=== PATIENT | male | born 1980 | race Caucasian/White ===

== ENCOUNTER 2016-08-12 19:58 | Emergency (ER) | payer BC ==
[~2016-08-12] VITALS: Ht 160 cm; Wt 84.0 kg
[~2016-08-12 19:58] MED LIST: FLXHP PO; OXYC7.5T65 PO
[2016-08-12 19:59] VITALS: Ht 160 cm; Wt 84.0 kg
[2016-08-12] MEDS ORDERED: PROCHLORPERAZINE 5 MG/ML 2 ML VIAL IV STA (20:34)
[2016-08-12] MEDS ORDERED: DiphenhydrAMINE HCL 50 MG/ML VIAL IV STA (20:34)
[2016-08-12] MEDS ORDERED: SODIUM CHLORIDE 0.9% 1000ML 1,000 ML IV STA (20:34)
[2016-08-12] MEDS ORDERED: KETOROLAC TROMETHAMINE 30 MG/ML VIAL IV STA (20:34)
[2016-08-12] MEDS ORDERED: ONDANSETRON INJ 2 MG/ML 2 ML VIAL IV STA (20:34)
[2016-08-12] MEDS ORDERED: RIZA1TAB11 PO (20:41)
[2016-08-12] MEDS ORDERED: DEXAMETHASONE SOD INJ 10 MG/ML VIAL IV ONE (20:45)
--- NOTE | 2016-08-12 22:31 | EMERGENCY ROOM VISIT NOTE ---
ED Visit Note First contact with patient: 20:23 CHIEF COMPLAINT: Migraine since this afternoon HISTORY OF PRESENT ILLNESS: Patient is a 35-year-old white male who presents to the emergency department for evaluation of a migraine headache that started several hours ago. He states that the headache started as muscle tension in his neck, and he thought it was a typical tension headache. He later noted some associated visual aura which progressed to photophobia. He tried taking rizatriptan 1, without relief. The headache has progressed, and now feels like someone is firing a drill through his right eye. He is nauseous but has not vomited. He did not try any additional medications due to the severe nausea and his concern that it will cause him to vomit. He has a history of migraines and states that this does feel similar, although worse than his usual migraine. He reports that he has to use his triptan roughly once a month. He has been evaluated by neurology and had imaging scans including CTs and MRIs in the past. He is generally taking care of by his PCP for his migraines. He rates his pain a 7/10. He has not been sick with any cold or upper respiratory symptoms, fever or chills recently. Denies weakness or numbness of the extremities. There is no difficulty with balance, coordination, speech or vision. No trauma to the head and no neck pain. REVIEW OF SYSTEMS: Review of systems as per HPI. All other systems reviewed were negative. 10 systems reviewed. PMH: Electronic medical records are reviewed and summarized as above/below. See Problem List. SOCIAL HISTORY: Patient lives at home with his partner. Nonsmoker. Drinks alcohol socially. PHYSICAL EXAM: Vital Signs: Reviewed Nurse's notes. General Appearance: Patient is an uncomfortable appearing 35-year-old white male who is awake and alert and holding the right side of his head, pacing in a darkened room. Eyes: Pupils equal round reactive to light extraocular muscles are intact, no proptosis, mild photophobia ENT: Oropharynx is clear, mucous membranes are moist, tympanic membranes are clear bilaterally, no sinus or dental tenderness Neck: Supple, no cervical lymphadenopathy, no meningismus Heart: Regular rate and rhythm, S1 and S2 Lungs: Clear to auscultation bilaterally, no wheezes Rales or rhonchi, no increased work of breathing Abdomen: Soft nontender nondistended. Normal active bowel sounds. No rebound. No guarding. Back: No midline tenderness to palpation. : No CVA tenderness to palpation. Skin: Warm, no diaphoresis, no rashes. Extremities: No cyanosis, clubbing, or edema Neurologic: Patient is awake alert, and oriented x 3. Cranial nerves 2-12 are grossly intact. Motor 5 out of 5 strength bilateral upper extremities and lower extremities. No gross sensory deficits. Reflexes are 2+ throughout. EMERGENCY DEPARTMENT COURSE: The patient was seen and assessed as above. His old records are reviewed. He is seen in frequently for migraines, his last visit for a severe headache was about [address] scan performed at that time was negative. Treatment plan was discussed with the patient and he was in agreement. IV lock was initiated. He was hydrated with a liter bolus of normal saline solution and medicated with Zofran 4 mg IV, Benadryl 50 mg IV, Compazine 10 mg IV, Toradol 30 mg IV and Decadron 10 mg IV. He was reassessed and reported that his headache had improved. He rated it a 4/10. He was allowed to rest until the IV fluids were completed. He was given an oxycodone home pack to use for any rebound symptoms overnight. He rated his discomfort a 3/10 at discharge. He was discharged home with his significant other driving. Differential includes: acute intracranial bleed, meningitis, encephalitis, mass or mass effect, sinusitis, infection, migraine, tumor, headache, temporal arteritis and carbon monoxide exposure. Problem List Medical Problems: (1) Asthma, Unspecified Status: Chronic (2) Back pain Status: Resolved (3) Back pain Status: Resolved (4) Depressive Disorder Nec Status: Chronic (5) Disc Displacement Nos Status: Resolved (6) Headache Status: Resolved (7) Migraine Status: Chronic (8) S/P epidural steroid injection Status: Resolved Surgical Problems: (1) S/P tonsillectomy and adenoidectomy Status: Resolved Current/Historical Medications Scheduled Rizatriptan Benzoate (Rizatriptan Benzoate), 10 MG PO DIRECTED Scheduled PRN Cyclobenzaprine HCl (Cyclobenzaprine HCl), 10 MG PO BID PRN for MUSCLE PAIN Allergies Coded Allergies: Penicillins (Verified Allergy, Unknown, 08/12/16) Sulfa Drugs (Verified Allergy, Unknown, 08/12/16) Vital Signs Date Time Temp Pulse Resp B/P Pulse Ox O2 Delivery O2 Flow Rate FiO2 08/12/16 23:01 90 18 122/72 97 Room Air 08/12/16 19:59 95 20 139/93 98 Room Air Medications Administered Medications (Trade) Dose Ordered Sig/Kelly Route Start Time Stop Time Status Last Admin Dose Admin Sodium Chloride (Nss 1000ml) 1,000 ml @ 999 mls/hr Q1H1M STAT IV 08/12/16 20:34 08/12/16 21:34 DC 08/12/16 21:13 999 MLS/HR Ketorolac Tromethamine (Toradol Inj) 30 mg NOW STAT IV 08/12/16 20:34 08/12/16 20:36 DC 08/12/16 21:13 30 MG Diphenhydramine HCl (Benadryl Inj) 50 mg NOW STAT IV 08/12/16 20:34 08/12/16 20:36 DC 08/12/16 21:29 50 MG Prochlorperazine Edisylate (Compazine Inj) 10 mg NOW STAT IV 08/12/16 20:34 08/12/16 20:36 DC 08/12/16 21:28 10 MG Dexamethasone Sodium Phosphate (Decadron Inj) 10 mg NOW ONCE IV 08/12/16 20:45 08/12/16 20:46 DC 08/12/16 21:13 10 MG Ondansetron HCl (Zofran Inj) 4 mg NOW STAT IV 08/12/16 20:34 08/12/16 20:36 DC 08/12/16 21:12 4 MG Oxycodone HCl (Roxicodone Immediate Rel 5MG Home Pack) 1 homepack UD ONCE PO 08/12/16 22:45 08/12/16 22:46 DC 08/12/16 23:05 1 HOMEPACK Departure Information Impression Primary Impression: Headache Referrals Darcy Edward M.D. (PCP) Patient Instructions My [facility] Additional Instructions DO NOT drive, drink alcohol, operate machinery, or perform dangerous activities today. You were given medications in the ER that can affect your ability to safely function or operate a vehicle. Oxycodone (OxyIR) 5mg: Take 1-2 pills every four hours for breakthrough pain. Avoid alcohol, operating machinery or dangerous equipment, working on ladders or roofs, DRIVING, or situations where being under the influence may be dangerous. It is recommended to use an [id number] stool softener such as Colace, 100mg twice daily while taking this medication to avoid constipation. Rest today in a quiet, peaceful, dark environment and get a full 8-10 hrs of sleep tonight. Avoid loud noises, smoke/smoking, alcohol, bright lights, stress, or physical exertion today to minimize the chance the headache may return. Continue current medications. Ibuprofen(Motrin, Advil) may be used for fever or pain. Use 600mg every six hours as needed. Take with food. Avoid using more than 2400mg in a 24 hour period. Do not use 2400mg per day for more than three consecutive days without physician direction. Prolonged inappropriate use can lead to stomach upset or ulcers. This is available over the counter and typically comes in 200mg tablets. (AND/OR) Acetaminophen(Tylenol) may be used for fever or pain. Use 1000mg every eight hours as needed. Avoid using more than 3000mg in a 24 hour period. This is available over the counter. Read all the package inserts or medication information paperwork provided. If you have any questions or concerns call your primary provider, pharmacist or the ER for assistance. Return to the ER for passing out, worsening headache, vision problems, neck stiffness/pain, fevers, vomiting, feeling lethargic, worsening of your condition, or as needed. Follow up with your primary physician in 2-3 days for a recheck of your current condition
[2016-08-12] MEDS ORDERED: OXYCODONE IR HOME PACK PO ONE (22:45)
[2016-08-12 23:01] VITALS: BP 122/72; PULSE 90; O2SAT 97
== END 2016-08-12 23:08 | disposition home or self-care (01) ==
LOC: C.EDB 19:58 → C.EDD 23:08
DX: R51 Headache (principal); J45.909 Unspecified asthma, uncomplicated; F32.9 Major depressive disorder, single episode, unspecified

== ENCOUNTER → 2017-03-01 | Outpatient (CLI) | payer BC ==
[~2017-03-01] MED LIST changes: -OXYC7.5T65 PO; +RIZA1TAB11 PO
--- NOTE | 2017-03-01 21:14 | DIAGNOSTIC IMAGING REPORT ---
RIGHT FIFTH FINGER 3 VIEWS HISTORY: Right fifth finger injury. FINGER FRACTURE, RT Right COMPARISON: None. FINDINGS: Tiny volar plate fracture at the base of the middle phalanx which is slightly distracted. No dislocation. Soft tissue swelling within the fifth finger. No radiopaque foreign bodies. IMPRESSION: There is a tiny avulsion fracture at the volar plate at the base of the middle phalanx of the right fifth finger. No dislocation. Electronically signed by: Anand Lynch M.D. 03/01/2017 9:12 PM Dictated Date/Time: 03/01/2017 9:11 PM
== END | disposition home or self-care (01) ==
LOC: C.RAD 20:50
PROVIDERS: ATTEND Family Medicine
DX: S62.656A Nondisplaced fracture of middle phalanx of right little finger, initial encounter for closed fracture (principal); W19.XXXA Unspecified fall, initial encounter

== ENCOUNTER → 2018-01-16 | Outpatient (CLI) | payer OTHER ==
--- NOTE | 2018-01-16 16:02 | DIAGNOSTIC IMAGING REPORT ---
LEFT ANKLE 3 VIEWS HISTORY: PAIN IN UNSPECIFIED JOINT COMPARISON: None. FINDINGS: There is no fracture or dislocation. Soft tissues are unremarkable. Sclerotic focus within the talus favors a bone island. Cartilage spaces are maintained. IMPRESSION: No fracture or dislocation within the left ankle. Electronically signed by: Anand Lynch M.D. 01/16/2018 4:00 PM Dictated Date/Time: 01/16/2018 3:59 PM
--- NOTE | 2018-01-16 16:03 | DIAGNOSTIC IMAGING REPORT ---
LEFT SHOULDER 3 VIEWS HISTORY: Left shoulder pain. COMPARISON: None. FINDINGS: There is no fracture or dislocation. Soft tissues are unremarkable. The left clavicle is intact. IMPRESSION: No fractures. Electronically signed by: Anand Lynch M.D. 01/16/2018 4:01 PM Dictated Date/Time: 01/16/2018 4:00 PM
== END | disposition home or self-care (01) ==
LOC: C.RAD1850 15:46
PROVIDERS: ATTEND Family Medicine
DX: M25.572 Pain in left ankle and joints of left foot (principal); M25.512 Pain in left shoulder